=== PATIENT | female | born 1995 | race Caucasian/White ===

== ENCOUNTER 2018-03-11 06:18 | Inpatient (IN) | payer MEDICAID, OTHER ==
[~2018-03-11] VITALS: Ht 162.6 cm; Wt 111.0 kg
[2018-03-11] MEDS ORDERED: HYDR-4069 PO (06:30)
[2018-03-11] MEDS ORDERED: LORazepam 2 MG/ML VIAL IM ONE (06:30)
[2018-03-11] MEDS ORDERED: SODIUM CHLORIDE 0.9% 2,000 ML IV ONE (07:00)
[2018-03-11 07:07] LABS: GLUCOSE,POINT OF CARE 116 MG/DL (70-110)
[2018-03-11 08:07] LABS: AMPHET/METH SCREEN,URINE NEGATIVE (NEGATIVE); BARBITURATE SCREEN, URINE NEGATIVE (NEGATIVE); BENZODIAZEPINES SCREEN,URINE NEGATIVE (NEGATIVE); CANNABINOID SCREEN,URINE POSITIVE (NEGATIVE); COCAINE SCREEN,URINE NEGATIVE (NEGATIVE); METHADONE SCREEN, URINE NEGATIVE (NEGATIVE); OPIATE SCREEN,URINE NEGATIVE (NEGATIVE)
[2018-03-11 08:08] LABS: PHENCYCLIDINE SCREEN,URINE NEGATIVE (NEGATIVE)
[2018-03-11 08:29] LABS: BASOPHILS % (AUTO) 0.3 % (0.0-2.0); EOSINOPHILS % (AUTO) 0.6 % (1.0-6.0); HEMATOCRIT 36.1 % (36-46); HEMOGLOBIN 12.7 g/dL (12.0-16.0); LYMPHOCYTES # (AUTO) 1.3 K/uL (1.0-4.8); LYMPHOCYTES % (AUTO) 16.4 % (22.0-44.0); MEAN CORPUSCULAR HEMOGLOBIN 32.1 pg (26.0-34.0); MEAN CORPUSCULAR HGB CONC 35.2 G/dL (31.0-37.0); MEAN CORPUSCULAR VOLUME 91 fL (80-100); MONOCYTES # (AUTO) 0.6 K/uL (0.1-1.0); MONOCYTES % (AUTO) 7.2 % (2.0-9.0); NEUTROPHILS # (AUTO) 6.1 K/uL (1.8-7.7); NEUTROPHILS % (AUTO) 75.5 % (40.0-70.0); PLATELET COUNT (AUTO) 243 K/uL (150-450); RED BLOOD CELL COUNT(AUTO) 3.95 MIL/uL (4.00-5.20); RED CELL DISTRIBUTION WIDTH 13.1 % (11.5-14.5)
[2018-03-11 08:34] LABS: ANION GAP 13 mmol/L (8-16); CALCIUM, TOTAL 6.8 mg/dL (8.8-10.5); CARBON DIOXIDE 20 mmol/L (22-29); CHLORIDE 110 mmol/L (98-107); CREATININE 0.74 mg/dL (0.60-1.30); GLOMERULAR FILTR. RATE CALC > 60 mL/min (>60); GLUCOSE,RANDOM 106 mg/dL (70-110); POTASSIUM 3.2 mmol/L (3.5-5.1); SODIUM SERUM 143 mmol/L (136-145); UREA NITROGEN, BLOOD 8 mg/dL (7-18)
[2018-03-11 08:41] LABS: SALICYLATE < 2.8 mg/dL (2.8-20.0)
[2018-03-11 08:46] LABS: ALKALINE PHOSPHATASE 85 U/L (46-116); ASPARTATE AMINOTRANSFERASE 18 U/L (15-37); BILIRUBIN,TOTAL 0.3 mg/dL (0.1-1.0)
[2018-03-11 08:47] LABS: ACETAMINOPHEN 3 mcg/mL (10-30); ALANINE AMINOTRANSFERASE 24 U/L (12-78); ALBUMIN 3.1 g/dL (3.4-5.0); TOTAL PROTEIN, SERUM 5.8 g/dL (6.4-8.2)
[2018-03-11] MEDS ORDERED: HALOPERIDOL 5 MG TABLET PO PRN (10:15)
[2018-03-11] MEDS ORDERED: ZOLPIDEM TARTRATE 10 MG TABLET PO PRN (10:15)
[2018-03-11] MEDS ORDERED: LORazepam 2 MG TABLET PO PRN (10:15)
[2018-03-11] MEDS ORDERED: SODIUM CHLORIDE 0.9% 1,000 ML IV ONE (13:00)
[2018-03-11 14:02] VITALS: BP 126/88
[2018-03-11] MEDS ORDERED: ONDANSETRON HCL 4 MG/2 ML VIAL IVP PRN (14:15)
[2018-03-11] MEDS ORDERED: [UNRECOGNIZED DRUG - REMARK] IV ONE ×6 (14:30)
[2018-03-11] MEDS ORDERED: MAGNESIUM SULFATE 2 GM, MVI, ADULT NO.1 WITH VIT K 10 ML, THIAMINE HCL 100 MG, FOLIC AC... IV ONE ×5 (14:30)
[2018-03-11] MEDS ORDERED: LORazepam 2 MG/ML VIAL IVP PRN (14:30)
[2018-03-11 14:36] VITALS: BP 125/78
[2018-03-11] MEDS: PANTOPRAZOLE SODIUM 40 MG DR TABLET PO SCH (14:49)
[2018-03-11] MEDS: ENOXAPARIN SODIUM 40 MG/0.4 ML PF SYRINGE SQ SCH (14:50)
[2018-03-11 15:54] LABS: BASOPHILS % (AUTO) 0.5 % (0.0-2.0); EOSINOPHILS % (AUTO) 1.4 % (1.0-6.0); HEMATOCRIT 39.4 % (36-46); HEMOGLOBIN 13.9 g/dL (12.0-16.0); LYMPHOCYTES # (AUTO) 1.5 K/uL (1.0-4.8); LYMPHOCYTES % (AUTO) 16.9 % (22.0-44.0); MEAN CORPUSCULAR HEMOGLOBIN 32.2 pg (26.0-34.0); MEAN CORPUSCULAR HGB CONC 35.3 G/dL (31.0-37.0); MEAN CORPUSCULAR VOLUME 91 fL (80-100); MONOCYTES # (AUTO) 0.7 K/uL (0.1-1.0); MONOCYTES % (AUTO) 7.6 % (2.0-9.0); NEUTROPHILS # (AUTO) 6.7 K/uL (1.8-7.7); NEUTROPHILS % (AUTO) 73.6 % (40.0-70.0); PLATELET COUNT (AUTO) 246 K/uL (150-450); RED BLOOD CELL COUNT(AUTO) 4.31 MIL/uL (4.00-5.20); RED CELL DISTRIBUTION WIDTH 13.1 % (11.5-14.5)
[2018-03-11 16:07] LABS: PROTHROMBIN TIME 10.5 SEC (9.4-11.6)
[2018-03-11 16:11] LABS: ALANINE AMINOTRANSFERASE 26 U/L (12-78); ALBUMIN 3.3 g/dL (3.4-5.0); ALKALINE PHOSPHATASE 96 U/L (46-116); ANION GAP 9 mmol/L (8-16); ASPARTATE AMINOTRANSFERASE 23 U/L (15-37); BILIRUBIN,TOTAL 0.7 mg/dL (0.1-1.0); CALCIUM, TOTAL 7.2 mg/dL (8.8-10.5); CARBON DIOXIDE 26 mmol/L (22-29); CHLORIDE 107 mmol/L (98-107); CREATININE 0.82 mg/dL (0.60-1.30); GLOMERULAR FILTR. RATE CALC > 60 mL/min (>60); GLUCOSE,RANDOM 97 mg/dL (70-110); POTASSIUM 3.3 mmol/L (3.5-5.1); SODIUM SERUM 142 mmol/L (136-145); TOTAL PROTEIN, SERUM 6.3 g/dL (6.4-8.2); UREA NITROGEN, BLOOD 5 mg/dL (7-18)
[2018-03-11 17:38] VITALS: BP 127/74
[2018-03-11 20:26] VITALS: BP 122/74
[2018-03-12] VITALS (7 sets, daily range): BP systolic 121–128; BP diastolic 72–91
[2018-03-12 08:19] LABS: ANION GAP 7 mmol/L (8-16); CALCIUM, TOTAL 7.9 mg/dL (8.8-10.5); CARBON DIOXIDE 26 mmol/L (22-29); CHLORIDE 107 mmol/L (98-107); CREATININE 0.81 mg/dL (0.60-1.30); GLOMERULAR FILTR. RATE CALC > 60 mL/min (>60); GLUCOSE,RANDOM 99 mg/dL (70-110); POTASSIUM 3.9 mmol/L (3.5-5.1); SODIUM SERUM 140 mmol/L (136-145); UREA NITROGEN, BLOOD 5 mg/dL (7-18)
[2018-03-12] MEDS: PANTOPRAZOLE SODIUM 40 MG DR TABLET PO SCH (08:49)
[2018-03-12] MEDS: ENOXAPARIN SODIUM 40 MG/0.4 ML PF SYRINGE SQ SCH (08:49)
[2018-03-12] MEDS: MIRTAZAPINE 15 MG TABLET PO SCH (22:13)
[2018-03-12] MEDS ORDERED: ACETAMINOPHEN 325 MG TABLET PO PRN (23:00)
[2018-03-13 04:13] VITALS: BP 127/81
[2018-03-13] MEDS: ENOXAPARIN SODIUM 40 MG/0.4 ML PF SYRINGE SQ SCH (08:26)
[2018-03-13] MEDS: PANTOPRAZOLE SODIUM 40 MG DR TABLET PO SCH (08:26)
[2018-03-13] MEDS: ARIPiprazole 5 MG TABLET PO SCH (08:26)
[2018-03-13 08:44] VITALS: BP 131/78
[2018-03-13 09:51] LABS: BASOPHILS % (AUTO) 0.4 % (0.0-2.0); EOSINOPHILS % (AUTO) 3.4 % (1.0-6.0); HEMATOCRIT 41.1 % (36-46); HEMOGLOBIN 14.4 g/dL (12.0-16.0); LYMPHOCYTES # (AUTO) 1.2 K/uL (1.0-4.8); LYMPHOCYTES % (AUTO) 24.8 % (22.0-44.0); MEAN CORPUSCULAR HEMOGLOBIN 32.1 pg (26.0-34.0); MEAN CORPUSCULAR VOLUME 92 fL (80-100); MONOCYTES # (AUTO) 0.2 K/uL (0.1-1.0); MONOCYTES % (AUTO) 4.3 % (2.0-9.0); NEUTROPHILS # (AUTO) 3.4 K/uL (1.8-7.7); NEUTROPHILS % (AUTO) 67.1 % (40.0-70.0); PLATELET COUNT (AUTO) 228 K/uL (150-450); RED BLOOD CELL COUNT(AUTO) 4.49 MIL/uL (4.00-5.20); RED CELL DISTRIBUTION WIDTH 12.8 % (11.5-14.5)
[2018-03-13 09:58] LABS: ANION GAP 6 mmol/L (8-16); CARBON DIOXIDE 28 mmol/L (22-29); CHLORIDE 102 mmol/L (98-107); CREATININE 0.89 mg/dL (0.60-1.30); GLOMERULAR FILTR. RATE CALC > 60 mL/min (>60); GLUCOSE,RANDOM 132 mg/dL (70-110); POTASSIUM 3.5 mmol/L (3.5-5.1); SODIUM SERUM 136 mmol/L (136-145); UREA NITROGEN, BLOOD 11 mg/dL (7-18)
[2018-03-13 10:04] LABS: ALANINE AMINOTRANSFERASE 24 U/L (12-78); ALBUMIN 3.1 g/dL (3.4-5.0); ALKALINE PHOSPHATASE 104 U/L (46-116); ASPARTATE AMINOTRANSFERASE 19 U/L (15-37); BILIRUBIN,TOTAL 0.5 mg/dL (0.1-1.0); TOTAL PROTEIN, SERUM 6.5 g/dL (6.4-8.2)
[2018-03-13 11:55] VITALS: BP 125/72
[2018-03-13] MEDS: NICOTINE 21 MG/24 HOUR PATCH TD SCH (16:17)
[2018-03-13 20:19] VITALS: BP 124/65
[2018-03-13] MEDS: MIRTAZAPINE 15 MG TABLET PO SCH (20:22)
[2018-03-14 00:08] VITALS: BP 119/72
[2018-03-14 04:00] VITALS: BP 124/75
[2018-03-14 07:56] VITALS: BP 115/69
[2018-03-14] MEDS: ARIPiprazole 5 MG TABLET PO SCH (08:17)
[2018-03-14] MEDS: ENOXAPARIN SODIUM 40 MG/0.4 ML PF SYRINGE SQ SCH (08:17)
[2018-03-14] MEDS: NICOTINE 21 MG/24 HOUR PATCH TD SCH (08:17)
[2018-03-14] MEDS: PANTOPRAZOLE SODIUM 40 MG DR TABLET PO SCH (08:17)
[2018-03-14 11:35] VITALS: BP 113/69
[2018-03-14 16:00] VITALS: BP 118/75
[2018-03-14] MEDS ORDERED: MIRT15 PO (18:08)
[2018-03-14] MEDS ORDERED: ARIP5TAB8 PO (18:08)
[2018-03-14] MEDS ORDERED: FAMO20 PO (18:08)
== END 2018-03-14 19:30 | disposition home or self-care (01) | DRG 812 ==
LOC: EMS 06:19 → 5S 13:17
PROVIDERS: ADMIT Internal Medicine; ATTEND Internal Medicine
DX: T40.2X2A Poisoning by other opioids, intentional self-harm, initial encounter (principal); R45.851 Suicidal ideations; F33.2 Major depressive disorder, recurrent severe without psychotic features; Z68.41 Body mass index [BMI] 40.0-44.9, adult; F60.3 Borderline personality disorder; N28.9 Disorder of kidney and ureter, unspecified; E87.6 Hypokalemia; F41.1 Generalized anxiety disorder; F10.229 Alcohol dependence with intoxication, unspecified; F12.90 Cannabis use, unspecified, uncomplicated; F17.200 Nicotine dependence, unspecified, uncomplicated; Z59.0 Homelessness; Z78.1 Physical restraint status; Z79.899 Other long term (current) drug therapy; Z83.3 Family history of diabetes mellitus
CPT/HCPCS: 51702; 82248; 93005; 93041; 96372; 99291; G0480; G0481; J1650; J2060; J2405; J3411; J3475; J3480; J3490; J7030

== ENCOUNTER 2018-03-19 12:03 | Inpatient (IN) | payer MEDICAID, OTHER ==
[~2018-03-19] VITALS: Ht 165.1 cm; Wt 93.5 kg
[~2018-03-19 12:03] MED LIST: ARIP5TAB8 PO; FAMO20 PO; MIRT15 PO
[2018-03-19 12:28] LABS: BASOPHILS % (AUTO) 0.4 % (0.0-2.0); EOSINOPHILS % (AUTO) 2.4 % (1.0-6.0); HEMOGLOBIN 14.6 g/dL (12.0-16.0); LYMPHOCYTES # (AUTO) 1.1 K/uL (1.0-4.8); LYMPHOCYTES % (AUTO) 18.4 % (22.0-44.0); MEAN CORPUSCULAR HEMOGLOBIN 31.6 pg (26.0-34.0); MEAN CORPUSCULAR HGB CONC 34.6 G/dL (31.0-37.0); MEAN CORPUSCULAR VOLUME 91 fL (80-100); MONOCYTES # (AUTO) 0.4 K/uL (0.1-1.0); MONOCYTES % (AUTO) 6.2 % (2.0-9.0); NEUTROPHILS # (AUTO) 4.5 K/uL (1.8-7.7); NEUTROPHILS % (AUTO) 72.6 % (40.0-70.0); PLATELET COUNT (AUTO) 242 K/uL (150-450); RED CELL DISTRIBUTION WIDTH 12.9 % (11.5-14.5)
[2018-03-19 12:41] LABS: ANION GAP 8 mmol/L (8-16); CALCIUM, TOTAL 8.7 mg/dL (8.8-10.5); CARBON DIOXIDE 27 mmol/L (22-29); CHLORIDE 104 mmol/L (98-107); CREATININE 0.91 mg/dL (0.60-1.30); GLOMERULAR FILTR. RATE CALC > 60 mL/min (>60); GLUCOSE,RANDOM 106 mg/dL (70-110); SODIUM SERUM 139 mmol/L (136-145); UREA NITROGEN, BLOOD 11 mg/dL (7-18)
[2018-03-19] MEDS ORDERED: IBUPROFEN 800 MG TABLET PO ONE (12:45)
[2018-03-19 12:47] LABS: ALANINE AMINOTRANSFERASE 32 U/L (12-78); ALBUMIN 3.7 g/dL (3.4-5.0); ALKALINE PHOSPHATASE 96 U/L (46-116); ASPARTATE AMINOTRANSFERASE 14 U/L (15-37); BILIRUBIN,TOTAL 0.6 mg/dL (0.1-1.0)
[2018-03-19] MEDS ORDERED: ZOLPIDEM TARTRATE 10 MG TABLET PO PRN (14:15)
[2018-03-19] MEDS ORDERED: DiphenhydrAMINE HCL 50 MG/ML VIAL IM ONE (14:30)
[2018-03-19] MEDS ORDERED: LORazepam 2 MG/ML VIAL IM ONE (14:30)
[2018-03-19 15:00] LABS: AMPHET/METH SCREEN,URINE POSITIVE (NEGATIVE); BARBITURATE SCREEN, URINE NEGATIVE (NEGATIVE); BENZODIAZEPINES SCREEN,URINE NEGATIVE (NEGATIVE); CANNABINOID SCREEN,URINE POSITIVE (NEGATIVE); COCAINE SCREEN,URINE NEGATIVE (NEGATIVE); METHADONE SCREEN, URINE NEGATIVE (NEGATIVE); OPIATE SCREEN,URINE NEGATIVE (NEGATIVE)
[2018-03-19 15:02] LABS: PHENCYCLIDINE SCREEN,URINE NEGATIVE (NEGATIVE)
[2018-03-19 15:05] LABS: APPEARANCE,URINE CLOUDY (CLEAR); BILIRUBIN,URINE NEGATIVE (NEGATIVE); GLUCOSE, URINE (UA) NEGATIVE (NEGATIVE); KETONES,URINE NEGATIVE (NEGATIVE); LEUKOCYTE ESTERASE ,URINE LARGE (NEGATIVE); NITRATE,URINE POSITIVE (NEGATIVE); OCCULT BLOOD,URINE NEGATIVE (NEGATIVE); PH,URINE 6.5 (5.0-8.0); PROTEIN,URINE NEGATIVE (NEGATIVE); UROBILINOGEN,URINE 0.2 mg/dL (<=1.0)
[2018-03-19 15:26] LABS: RBC,URINE 0-2 /HPF (0-2); WBC,URINE 51-100 /HPF (0-5)
[2018-03-19 15:27] LABS: BACTERIA,URINE Many /HPF (None Seen); SQUAMOUS EPITHELIAL CELL,UR Few /LPF (None Seen)
[2018-03-19 18:29] VITALS: BP 113/80
[2018-03-19] MEDS: HALOPERIDOL 5 MG TABLET PO PRN (23:01)
[2018-03-19] MEDS: LORazepam 2 MG TABLET PO PRN (23:47)
[2018-03-20 00:05] VITALS: BP 120/79
[2018-03-20 08:22] VITALS: BP 102/62
[2018-03-20 08:28] LABS: BASOPHILS % (AUTO) 0.4 % (0.0-2.0); EOSINOPHILS % (AUTO) 3.6 % (1.0-6.0); HEMATOCRIT 38.4 % (36-46); HEMOGLOBIN 13.4 g/dL (12.0-16.0); LYMPHOCYTES # (AUTO) 2.5 K/uL (1.0-4.8); LYMPHOCYTES % (AUTO) 31.2 % (22.0-44.0); MEAN CORPUSCULAR HEMOGLOBIN 32.3 pg (26.0-34.0); MEAN CORPUSCULAR HGB CONC 34.9 G/dL (31.0-37.0); MEAN CORPUSCULAR VOLUME 93 fL (80-100); MONOCYTES # (AUTO) 0.5 K/uL (0.1-1.0); NEUTROPHILS # (AUTO) 4.8 K/uL (1.8-7.7); NEUTROPHILS % (AUTO) 58.8 % (40.0-70.0); PLATELET COUNT (AUTO) 229 K/uL (150-450); RED BLOOD CELL COUNT(AUTO) 4.15 MIL/uL (4.00-5.20); RED CELL DISTRIBUTION WIDTH 13.1 % (11.5-14.5)
[2018-03-20] MEDS ORDERED: ACETAMINOPHEN 325 MG TABLET PO PRN (08:30)
[2018-03-20] MEDS ORDERED: LOPERAMIDE HCL 2 MG CAPSULE PO PRN (08:30)
[2018-03-20] MEDS ORDERED: PETROLATUM,WHITE 71 GM JELLY TP PRN (08:30)
[2018-03-20] MEDS ORDERED: CloNIDine HCL 0.1 MG TABLET PO PRN (08:30)
[2018-03-20] MEDS ORDERED: ONDANSETRON HCL 4 MG TABLET PO PRN (08:30)
[2018-03-20] MEDS ORDERED: IBUPROFEN 600 MG TABLET PO PRN (08:30)
[2018-03-20] MEDS ORDERED: MAGNESIUM HYDROXIDE SUSPENSION 30 ML UDCUP PO PRN (08:30)
[2018-03-20] MEDS ORDERED: ALBUTEROL SULFATE HFA 90 MCG/PUFF 8 GM INHALER IH PRN (08:30)
[2018-03-20] MEDS ORDERED: BACITRACIN 28.4 GM OINTMENT TP PRN (08:30)
[2018-03-20] MEDS ORDERED: BENZOCAINE/MENTHOL LOZENGE MM PRN (08:30)
[2018-03-20 08:39] LABS: HEMOGLOBIN A1C 5.6 % (4.5-6.2)
[2018-03-20 09:02] LABS: ALANINE AMINOTRANSFERASE 25 U/L (12-78); ALBUMIN 3.1 g/dL (3.4-5.0); ALKALINE PHOSPHATASE 83 U/L (46-116); ANION GAP 8 mmol/L (8-16); ASPARTATE AMINOTRANSFERASE 16 U/L (15-37); BILIRUBIN,TOTAL 0.4 mg/dL (0.1-1.0); CARBON DIOXIDE 26 mmol/L (22-29); CHLORIDE 104 mmol/L (98-107); CHOL/HDL RATIO 4.1 (3.9-5.7); CHOLESTEROL 112 mg/dL (131-200); CREATININE 0.79 mg/dL (0.60-1.30); FREE T4 (FREE THYROXINE) 0.99 ng/dL (0.76-1.46); GLOMERULAR FILTR. RATE CALC > 60 mL/min (>60); GLUCOSE,RANDOM 88 mg/dL (70-110); HDL CHOLESTEROL 27 mg/dL (40-60); LDL CHOL (CALC.) 42 mg/dL (0-130); POTASSIUM 3.8 mmol/L (3.5-5.1); SODIUM SERUM 138 mmol/L (136-145); THYROID STIMULATING HORMONE 1.62 uIU/mL (0.36-3.74); TOTAL PROTEIN, SERUM 5.6 g/dL (6.4-8.2); TRIGLYCERIDES 215 mg/dL (15-150); UREA NITROGEN, BLOOD 12 mg/dL (7-18)
[2018-03-20] MEDS: NITROFURANTOIN/NITROFURAN MAC 100 MG CAPSULE [MACROBID] PO SCH ×2 (10:09→16:34)
[2018-03-20] MEDS: NICOTINE 21 MG/24 HOUR PATCH TD SCH (10:13)
[2018-03-20] MEDS: LORazepam 2 MG TABLET PO PRN (13:59)
[2018-03-20] MEDS: MAG HYDROX/AL HYDROX/SIMETH ES 30 ML SUSPENSION UDCUP PO PRN (14:00)
[2018-03-20 18:00] VITALS: BP 124/79
[2018-03-20] MEDS ORDERED: MIRTAZAPINE 15 MG TABLET PO SCH (21:00)
[2018-03-21 03:15] VITALS: BP 119/73
[2018-03-21 08:24] VITALS: BP 113/67
[2018-03-21] MEDS ORDERED: ARIPiprazole 5 MG TABLET PO SCH (09:00)
[2018-03-21] MEDS: NICOTINE 21 MG/24 HOUR PATCH TD SCH (10:09)
[2018-03-21] MEDS: LORazepam 2 MG TABLET PO PRN (10:09)
[2018-03-21] MEDS: HALOPERIDOL 5 MG TABLET PO PRN (10:09)
[2018-03-21] MEDS: NITROFURANTOIN/NITROFURAN MAC 100 MG CAPSULE [MACROBID] PO SCH ×2 (10:09→17:02)
[2018-03-21 16:41] VITALS: BP 116/76
[2018-03-21] MEDS: MIRTAZAPINE 30 MG TABLET PO SCH (20:05)
[2018-03-22 05:23] VITALS: BP 107/63
[2018-03-22 08:20] VITALS: BP 112/69
[2018-03-22] MEDS: ARIPiprazole 10 MG TABLET PO SCH (10:02)
[2018-03-22] MEDS: NITROFURANTOIN/NITROFURAN MAC 100 MG CAPSULE [MACROBID] PO SCH ×2 (10:02→17:25)
[2018-03-22] MEDS: NICOTINE 21 MG/24 HOUR PATCH TD SCH (10:03)
[2018-03-22] MEDS: LORazepam 2 MG TABLET PO PRN (12:59)
[2018-03-22 16:14] VITALS: BP 109/68
[2018-03-22] MEDS: MIRTAZAPINE 30 MG TABLET PO SCH (21:50)
[2018-03-23 05:57] VITALS: BP 115/60
[2018-03-23 08:12] VITALS: BP 125/77
[2018-03-23] MEDS: ARIPiprazole 10 MG TABLET PO SCH (08:15)
[2018-03-23] MEDS: NITROFURANTOIN/NITROFURAN MAC 100 MG CAPSULE [MACROBID] PO SCH (08:15)
[2018-03-23] MEDS: NICOTINE 21 MG/24 HOUR PATCH TD SCH (08:16)
[2018-03-23] MEDS ORDERED: MACR100 PO (08:21)
[2018-03-23] MEDS ORDERED: ARIP10TA8 PO (08:21)
[2018-03-23] MEDS ORDERED: MIRT30 PO (08:21)
[2018-03-23] MEDS: MAG HYDROX/AL HYDROX/SIMETH ES 30 ML SUSPENSION UDCUP PO PRN (08:55)
== END 2018-03-23 12:05 | disposition home or self-care (01) | DRG 751 ==
LOC: EMS 12:05 → B2S 16:29
PROVIDERS: ADMIT Psychiatry & Neurology Child & Adolescent Psychiatry; ATTEND Psychiatry & Neurology Psychiatry
DX: F33.2 Major depressive disorder, recurrent severe without psychotic features (principal); E83.51 Hypocalcemia; N39.0 Urinary tract infection, site not specified; F15.10 Other stimulant abuse, uncomplicated; F60.3 Borderline personality disorder; F19.10 Other psychoactive substance abuse, uncomplicated; F12.90 Cannabis use, unspecified, uncomplicated; F10.10 Alcohol abuse, uncomplicated; G47.00 Insomnia, unspecified; F41.9 Anxiety disorder, unspecified; F17.200 Nicotine dependence, unspecified, uncomplicated; Z59.0 Homelessness; Z56.0 Unemployment, unspecified; Z79.899 Other long term (current) drug therapy; Z91.5 Personal history of self-harm; Z71.6 Tobacco abuse counseling; Z71.51 Drug abuse counseling and surveillance of drug abuser; Z71.41 Alcohol abuse counseling and surveillance of alcoholic
CPT/HCPCS: 82306; 83036; 84439; 84443; 87081; 87086; 96372; 99285; G0480; J1200; J2060

== ENCOUNTER 2018-07-16 18:22 | Inpatient (IN) | payer MEDICAID, OTHER ==
[~2018-07-16] VITALS: Ht 162.6 cm; Wt 100.2 kg
[~2018-07-16 18:22] MED LIST changes: -ARIP5TAB8 PO; -FAMO20 PO; +LAMO25 PO; -MIRT15 PO; +QUET100T PO; +QUET25TA PO
[2018-07-16] MEDS ORDERED: ZOLPIDEM TARTRATE 10 MG TABLET PO PRN (19:30)
[2018-07-16] MEDS ORDERED: LORazepam 2 MG TABLET PO PRN (19:30)
[2018-07-16] MEDS ORDERED: OLANZapine 5 MG RAPDIS TABLET PO PRN (19:45)
[2018-07-16 20:01] VITALS: BP 142/83
[2018-07-16] MEDS: OLANZapine 5 MG RAPDIS TABLET PO SCH (21:57)
[2018-07-17 09:11] VITALS: BP 115/72
[2018-07-17] MEDS: FLUoxetine HCL 20 MG CAPSULE PO SCH (09:47)
[2018-07-17] MEDS: PANTOPRAZOLE SODIUM 40 MG DR TABLET PO SCH (09:47)
[2018-07-17] MEDS: NICOTINE 21 MG/24 HOUR PATCH TD SCH (09:57)
[2018-07-17] MEDS ORDERED: HydrOXYzine PAMOATE 50 MG CAPSULE PO PRN (11:45)
[2018-07-17] MEDS ORDERED: GuaiFENesin/D-METHORPHAN [SUGAR-FREE] 200-20MG/10 ML SYRUP UDCUP PO PRN (11:45)
[2018-07-17] MEDS ORDERED: PROMETHAZINE HCL 25 MG TABLET PO PRN (11:45)
[2018-07-17] MEDS ORDERED: ACETAMINOPHEN 325 MG TABLET PO PRN (11:45)
[2018-07-17] MEDS ORDERED: MAGNESIUM HYDROXIDE SUSPENSION 30 ML UDCUP PO PRN (11:45)
[2018-07-17] MEDS ORDERED: MAG HYDROX/AL HYDROX/SIMETH ES 30 ML SUSPENSION UDCUP PO PRN (11:45)
[2018-07-17] MEDS ORDERED: LOPERAMIDE HCL 2 MG CAPSULE PO PRN (11:45)
[2018-07-17] MEDS: NITROFURANTOIN/NITROFURAN MAC 100 MG CAPSULE [MACROBID] PO SCH (16:43)
[2018-07-17] MEDS: THIAMINE HCL 100 MG TABLET PO SCH (16:43)
[2018-07-17] MEDS ORDERED: NALT50TA PO (17:49)
[2018-07-17] MEDS ORDERED: OLAN5TAB30 PO (17:49)
[2018-07-17] MEDS ORDERED: FLUO-191 PO (17:49)
[2018-07-17 20:03] VITALS: BP 132/80
[2018-07-17] MEDS: OLANZapine 5 MG RAPDIS TABLET PO SCH (20:17)
[2018-07-18] MEDS: FLUoxetine HCL 20 MG CAPSULE PO SCH (08:07)
[2018-07-18] MEDS: THIAMINE HCL 100 MG TABLET PO SCH (08:07)
[2018-07-18] MEDS: PANTOPRAZOLE SODIUM 40 MG DR TABLET PO SCH (08:07)
[2018-07-18] MEDS: NITROFURANTOIN/NITROFURAN MAC 100 MG CAPSULE [MACROBID] PO SCH (08:07)
[2018-07-18 08:15] VITALS: BP 154/98
[2018-07-18] MEDS ORDERED: FOLIC ACID 1 MG TABLET PO SCH (09:00)
[2018-07-18] MEDS: NICOTINE 21 MG/24 HOUR PATCH TD SCH (09:00)
[2018-07-18] MEDS ORDERED: NALTREXONE HCL 50 MG TABLET PO SCH (09:00)
[2018-07-18] MEDS ORDERED: MULTIVITAMINS WITH MINERALS, THERAPEUTIC TABLET PO SCH (09:00)
[2018-07-18] MEDS ORDERED: PANT40TA25 PO (10:08)
[2018-07-18] MEDS ORDERED: MACR100 PO (10:08)
== END 2018-07-18 12:27 | disposition home or self-care (01) | DRG 753 ==
LOC: 3EI 19:15
PROVIDERS: ADMIT Psychiatry & Neurology Psychiatry; ATTEND Psychiatry & Neurology Psychiatry
DX: F31.30 Bipolar disorder, current episode depressed, mild or moderate severity, unspecified (principal); Z91.19 Patient's noncompliance with other medical treatment and regimen; E66.9 Obesity, unspecified; F12.90 Cannabis use, unspecified, uncomplicated; F17.200 Nicotine dependence, unspecified, uncomplicated; K21.9 Gastro-esophageal reflux disease without esophagitis; Z87.440 Personal history of urinary (tract) infections; Z68.37 Body mass index [BMI] 37.0-37.9, adult; Z86.718 Personal history of other venous thrombosis and embolism
CPT/HCPCS: 87081